=== PATIENT | male | born 1940 | race Caucasian/White ===

== ENCOUNTER 2017-07-21 05:25 | Day surgery (SDC) | payer OTHER ==
[~2017-07-21] VITALS: Ht 182.9 cm; Wt 159.3 kg
--- NOTE | ~2017-07-21 | O ---
[facility] [place] [address] OPERATIVE REPORT Name: YOVANI BRAND Room #: DEP [facility]..#: [id number] Admission: 07/21/17 Attend Phys: David Cavazos MD Discharge: 07/21/17 Date of : 44 Report #: [id number] THIS REPORT FOR: //name// CC: David Cavazos [facility] DATE OF SERVICE: 07/21/2017 PROCEDURE: Bronchoscopy. REASON FOR PROCEDURE: Right upper lobe mass with right hilar lymph nodes, need for endobronchial ultrasound and biopsy of right upper lobe and right hilar areas. ASA classification class 2. PROCEDURE NOTATION: After discussing risks and benefits of planned procedure with the patient, he desired to proceed. After obtaining informed consent, he was taken to the OR room 1 where he was placed under general endotracheal anesthesia by the Anesthesia service. An 8.0 end[address] tube was in place. Once accomplished, a standard white light bronchoscope was passed through the endotracheal tube until the distal trachea was seen. Trachea was somewhat saber sheathed in appearance. Airways were surveyed. Mainstem, lobar, segmental and subsegmental bronchi were explored. There was a significant distortion of the right upper lobe, particularly at the apical segment. Several brushings and forceps biopsies were obtained in this area. Bronchial washings of this area also sent for cytology. Once complete, white light bronchoscope was removed and the endobronchial ultrasound device was passed through the endotracheal tube. In usual fashion, the lymph node stations were evaluated. Findings included these. 11R, 9 mm; 10R, 7 mm; 7, 0 mm; 4L, 4R, no significant adenopathy; 11L, 6 mm. Several 25-gauge needle aspirates including 25-gauge core needles were obtained in the area of the 11R node. Rapid onsite pathology confirmed lymphoid tissue. Tissue also sent in formalin for histopathology. The patient tolerated well. No noted complications. Minor bleeding noted at site of biopsies. IMPRESSION: Right upper lobe mass with right hilar node, status post bronchoscopy under general endotracheal anesthesia with biopsies of the right upper lobe, brushings of the right upper lobe, washing of the right upper lobe and needle aspirates of 11R right hilar station. [address] [address] OPERATIVE REPORT Name: CATHIEYOVANI Armida Room #: DEP [facility]#: [id number] Admission: 07/21/17 Attend Phys: David Cavazos MD Discharge: 07/21/17 Date of : 44 Report #: [id number] RECOMMENDATION: Await pathology. <ELECTRONICALLY SIGNED> By: David Cavazos MD 07/28/17 1452 [id number] [id number] David Cavazos MD /nt
--- NOTE | ~2017-07-21 | CNG ---
[facility] [place] [address] CYTO-NONGYN REPORT PROCEDURE Name: YOVANI JORGENSEN Room #: DEP [facility].#: [id number] Admission: 07/21/17 Date of : 44 Discharge: 07/21/17 Report #: [id number] Path Case #: [id number] CYTOPATHOLOGY REPORT COLLECTION DATE: 07/21/2017 RECEIVED DATE: 07/24/2017 SUBMITTING PHYS: Dr. David Cavazos OTHER PHYS: Dr. Mohinder Brock CLINICAL HISTORY: Lung mass; see also [id number] SPECIMEN(S) RECEIVED: A.Bronchoalveolar lavage, EBUS B.Brushing, RUL C.EBUS guided Fine needle aspiration, 11R lymph node * * * * * * * * * * * * FINAL DIAGNOSIS: A. Bronchoalveolar lavage, EBUS: - No malignant epithelial cells identified. Paucicellular specimen with rare alveolar macrophages and bronchial epithelial cells, scattered acute and chronic inflammatory cells and background debris present. B. Brushing, RUL: - SUSPICIOUS FOR MALIGNANCY. Abundant atypical cells present suspicious for non-small cell carcinoma. Reactive bronchial epithelial cells and squamous epithelial cells are also present. C. EBUS guided fine needle aspiration, 11R lymph node: - No malignant epithelial cells identified. Rare reactive bronchial epithelial cells and background lymphoid tissue present. COMMENT: Please see also the bronchial biopsy showing atypical cells present suspicious for adenocarcinoma ([id number]). Clinical, radiographic and bronchoscopic correlation is required. (CLW:dinorah; 07/25/2017) PATHOLOGIST: Bridget Lewis M.D. REPORT ELECTRONICALLY SIGNED BY: Bridget Lewis M.D. DATE/TIME: 07/25/2017 14:48 * * * * * * * * * * * * GROSS PATHOLOGY: A. Bronchoalveolar lavage, EBUS: The specimen is submitted unfixed, labeled "Yovani Jorgensen Armida". Received by the Cytology Department is ten mL of cloudy red fluid. One ThinPrep slide was prepared. B. Brushing, RUL: The specimen is labeled "Yovani Jorgensen Armida" and [address] [address] CYTO-NONGYN REPORT PROCEDURE Name: YOVANI JORGENSEN Armida Room #: [facility]#: [id number] Admission: 07/21/17 Date of : 44 Discharge: 07/21/17 Report #: [id number] Path Case #: [id number] consists of four fixed slides. One brush tip in fixative is also submitted and one ThinPrep slide was prepared from this material. C. EBUS guided Fine needle aspiration, 11R lymph node: The specimen is labeled "Yovani Jorgensen" and consists of six Diff Quik slides. Twenty five mL of cloudy red fluid in formalin from the needle rinse is also submitted and one formalin fixed cell block was prepared from this material. (lg 07.24.2017) IMMEDIATE EVALUATION: C. EBUS guided Fine needle aspiration 11R lymph node, per Dr. Robertson: - Pass 1 not adequate - Pass 3 lymphoid tissue/blood - Pass 5 lymphoid tissue/blood Professional services performed by [facility] at [address] [place] [address]. CIGAR HEAD PERFORATOR(S): JOSE ARMANDO Hall([facility]) INITIAL CPT CODE(S): A; 45488 B; 85791 C; 97165, 37337, 90957, 04827 Professional services performed by [facility] at [facility] [address] , [place] [address] Technical services performed by [facility] at [address] [place] [address]., [address], [place] [address]. [facility] [address] [place] [address], [address] [place] [address] PHONE: [phone] DIRECTOR: Miguelito oRsales M.D. * * * END OF REPORT * * *
--- NOTE | ~2017-07-21 | S ---
[facility] [place] [address] [place] [address] SURGICAL PATH RPT PROCEDURE Name: YOVANI JORGENSEN Room #: DEP [facility] M..#: [id number] Admission: 07/21/17 Date of : 44 Discharge: 07/21/17 Report #: [id number] Path Case #: [id number] PATHOLOGY REPORT COLLECTION DATE: 07/21/2017 RECEIVED DATE: 07/21/2017 SUBMITTING PHYS: Dr. David Cavazos OTHER PHYS: Dr. Mohinder Brock SPECIMEN(S) RECEIVED: A.RUL * * * * * * * * * * * * FINAL DIAGNOSIS: "RUL", bronchial biopsy: - Bronchial wall with markedly atypical cells present, suspicious for adenocarcinoma. - Additional fragments of bronchial wall showing chronic inflammation, reactive squamous epithelial hyperplasia and abundant fresh hemorrhage. - See comment. (CLW:rocco; 07/25/2017) COMMENT: Properly controlled immunohistochemical stains are performed. Block A1 TTF-1 - Markedly atypical cells reactive P40 - Markedly atypical cells nonreactive, highlights the reactive squamous epithelial hyperplasia Several fragments show benign bronchial wall with reactive changes. Superficial detached fragments show focal markedly atypical cells that are reactive with TTF-1. Similar appearing cells are on the surface of one bronchial wall fragment. The findings are highly suspicious for adenocarcinoma. Clinical, radiographic and bronchoscopic correlation is required. The case is co-reviewed with Dr. Annie Mathew. Please see also the cytology specimen ([id number]). (CLW:rocco; 07/25/2017) PATHOLOGIST: Bridget Lewis M.D. REPORT ELECTRONICALLY SIGNED BY: Bridget Lewis M.D. DATE/TIME: 07/25/2017 14:47 * * * * * * * * * * * * GROSS PATHOLOGY: Received in formalin labeled "Yovani Jorgensen, right upper lobe [facility] [address] [place] [address] SURGICAL PATH RPT PROCEDURE Name: YOVANI JORGENSEN Room #: DEP [facility] Deidre#: [id number] Admission: 07/21/17 Date of : 44 Discharge: 07/21/17 Report #: [id number] Path Case #: [id number] biopsy" is a 0.5 x 0.5 x 0.2 cm aggregate of sneed-white focally hemorrhagic soft tissue fragments. The specimen is submitted entirely in cassettes A1-A2. ([facility]; 07/23/2017) CLINICAL HISTORY: [place] INITIAL CPT CODE(S): A; 43640, 08299, 72724 Professional services performed by [facility] at [address], [place] [address] Technical services performed by [facility] at [address] [place] [address], [address] [address]. [facility] [address] [place] [address] PHONE: [phone] DIRECTOR: Miguelito Rosales M.D. * * * END OF REPORT * * *
[~2017-07-21 05:25] MED LIST: ACETAMINOPHEN325 M1 PO; ALLOPURINOL 10100 M2 PO; ASPIRIN EC81 M1 PO; ASPIRIN81 M2 PO; ATROVENT15 ML NASAL; AVELOX 400 MG400 M1 PO; BENADRYL25 MG PO; CELEXA 10 MG TA10 MG PO; CELEXA 20 MG TA20 MG PO; CENTRUM SILVER1 EAC2 PO; CINNAMON PLUS1 EACH PO; CLOPIDOGREL75 MG; CLOTRIMAZOLE AF30 GM TP; COZAAR100 MG PO; CRESTOR20 MG PO; DUONEB 2.5-0.5 M3 ML INH; EFFIENT10 MG PO; FENOFIBRATE160 MG PO; FISH OIL 1,0001 EAC5 PO; FISH OIL 1,001000 M2 PO; FLOMAX0.4 MG PO; FLONASE 0.05%50 MCG NASAL; GEMFIBROZIL 60600 MG PO; HYDROCODON-ACE1 EACH; LANTUS SUBQ; LASIX 40 MG TAB40 M1 PO; LEVOXYL200 MCG PO; LEVOXYL25 MCG; LIPITOR 10 MG10 M1 PO; LOPRESSOR50 PO; MUCINEX600 MG PO; MULTI-VITAMIN1 EAC5 PO; NEURONTIN600 MG PO; NITROSTAT0.4 MG SUBLING; NORVASC10 MG PO; NOVOLOG MI100 UNIT/2 SQ; NOVOLOG MI100 UNIT/2 SUBQ; NOVOLOG100 UNIT/1 SQ; NOVOLOG100 UNIT/1 SUBQ; OMEPRAZOLE40 MG PO; PERCOCET 5-3251 EACH PO; PLAVIX 75 MG TA75 M1 PO; PREDNISONE 5 MG5 M1 PO; PROVIGIL 200 M200 M1 PO; RANITIDINE HCL300 M1 PO; SIMVASTATIN5 MG; SLO-NIACIN500 MG PO; STIOLTO RESPIMAT4 GM INH; SYMLINPEN2700 MCG/2 SUBQ; SYNTHROID150 MCG PO; VITAMIN B-12500 MCG PO; VITAMIN D-32000 UNIT PO
[2017-07-21 11:41] LABS: HEMATOCRIT 29.8 % (42.0-52.0); HEMOGLOBIN 10.4 gm/dL (14.0-18.0); MCHC 34.8 g/dL (28.0-37.0); MCV 89.2 fL (80.0-100.0); RBC 3.35 mil/uL (4.50-6.00); RDW 15.3 % (10.5-14.5); WBC 7.6 thou/uL (4.0-11.0)
[2017-07-21 11:51] LABS: PROTIME 10.5 Seconds (9.3-11.4)
[2017-07-21 11:55] LABS: CALCIUM 8.5 mg/dL (8.5-10.1); CREATININE 1.9 mg/dL (0.7-1.3); POTASSIUM 4.8 mmol/L (3.5-5.1)
[2017-07-21 12:29] VITALS: BP 130/55
== END 2017-07-21 16:09 | disposition home or self-care (01) ==
LOC: TBA 05:25 → OR 05:25
PROVIDERS: Internal Medicine Pulmonary Disease
DX: J42 Unspecified chronic bronchitis (principal); J98.09 Other diseases of bronchus, not elsewhere classified; I12.9 Hypertensive chronic kidney disease with stage 1 through stage 4 chronic kidney disease, or unspecified chronic kidney disease; N18.3 Chronic kidney disease, stage 3 (moderate); E11.22 Type 2 diabetes mellitus with diabetic chronic kidney disease; G47.33 Obstructive sleep apnea (adult) (pediatric); E78.5 Hyperlipidemia, unspecified; K21.9 Gastro-esophageal reflux disease without esophagitis; E03.9 Hypothyroidism, unspecified; E78.1 Pure hyperglyceridemia; Z90.49 Acquired absence of other specified parts of digestive tract; Z85.118 Personal history of other malignant neoplasm of bronchus and lung; Z98.890 Other specified postprocedural states; Z96.653 Presence of artificial knee joint, bilateral; Z95.5 Presence of coronary angioplasty implant and graft; Z79.4 Long term (current) use of insulin; Z87.891 Personal history of nicotine dependence; Z79.899 Other long term (current) drug therapy; Z79.82 Long term (current) use of aspirin
CPT/HCPCS: 62110; 62900; 70005